=== PATIENT | male | born 1990 | race Two or more races ===

== ENCOUNTER 2018-01-11 12:16 | Emergency (ER) | payer OTHER ==
[~2018-01-11] VITALS: Ht 160 cm; Wt 68.9 kg
[2018-01-11] MEDS ORDERED: ONDANSETRON HCL/PF 4 MG/2 ML VIAL ONE (12:23)
[2018-01-11] MEDS ORDERED: HYDROMORPHONE INJ 0.5 MG/0.5 ML SYRINGE ONE (12:24)
--- NOTE | 2018-01-11 12:25 | NUR ---
BIBRA DT LEFT ANKLE PAIN, 08/24 SP "TREE FELL ON HIS FOOT" PATIENT IS UNABLE TO AMBULATE DT PAIN, OBVIOUS DEFORMITY NOTED/ VSS. SKIN INTACT
[2018-01-11] MEDS ORDERED: ONDANSETRON HCL/PF 4 MG/2 ML VIAL IV ONE (12:30)
[2018-01-11] MEDS ORDERED: HYDROMORPHONE INJ 0.5 MG/0.5 ML SYRINGE IV ONE (12:30)
[2018-01-11 13:36] VITALS: BP 134/70
== END 2018-01-11 13:38 | disposition home or self-care (01) ==
LOC: ER 12:19
DX: S93.05XA Dislocation of left ankle joint, initial encounter (principal); W01.198A Fall on same level from slipping, tripping and stumbling with subsequent striking against other object, initial encounter; Y93.89 Activity, other specified; Y92.89 Other specified places as the place of occurrence of the external cause; Y99.8 Other external cause status
CPT/HCPCS: 73610-TC; A4606; J2405; Z7610